=== PATIENT | male | born 1995 | race Caucasian/White ===

== ENCOUNTER 2016-08-28 00:55 | Emergency (ER) | payer OTHER ==
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
== END 2016-08-28 02:26 | disposition home or self-care (01) ==
LOC: M ED 00:55
DX: M47.9 Spondylosis, unspecified (principal); V43.63XA Car passenger injured in collision with pick-up truck in traffic accident, initial encounter; Y92.410 Unspecified street and highway as the place of occurrence of the external cause; Y93.9 Activity, unspecified; Y99.9 Unspecified external cause status; Z72.0 Tobacco use